=== PATIENT | male | born 1990 | race Caucasian/White ===

== ENCOUNTER 2023-08-05 06:20 | Outpatient (REF) | payer OTHER, SELFPAY ==
[2023-08-05 06:46] LABS: MANUAL DIFF FLAG NO
[2023-08-05 07:15] LABS: Basophils Absolute Auto 0.1 X10*3/uL (0.0-0.2); Basophils Percent Auto 1.3 % (0-2); Eosinophils Absolute Auto 0.3 X10*3/uL (0.0-0.4); Eosinophils Percent Auto 3.2 % (0-4); Hematocrit 50.4 % (42.0-52.0); Hemoglobin 16.9 g/dl (14.0-18.0); Imm Gran Abs Auto 0.05 X10*3/uL (0.00-0.03); Imm Gran Pct Auto 0.6 % (0.0-0.4); Lymphocytes Absolute Auto 2.6 X10*3/uL (1.2-4.9); Lymphocytes Percent Auto 31.3 % (20-40); Mean Corpuscular HGB Conc 33.5 g/dl (31.0-36.0); Mean Corpuscular Hemoglobin 28.5 pg (27.0-33.0); Mean Corpuscular Volume 84.8 fL (80.0-98.0); Mean Platelet Volume 12.1 fL (9.4-12.4); Monocytes Absolute Auto 0.8 X10*3/uL (0.1-1.2); Monocytes Percent Auto 9.7 % (2-11); Neutrophils Absolute Auto 4.4 x10*3/uL (2.0-8.3); Neutrophils Percent Auto 53.9 % (45-73); Platelet Count 170 X10*3/uL (160-400); Red Blood Count 5.94 X10*6/uL (4.60-5.80); Red Cell Distribution Width 12.6 % (11.0-16.0); White Blood Count 8.2 X10*3/uL (4.8-10.8)
[2023-08-05 07:28] LABS: Cholesterol 213 mg/dL (<200); Glucose Fasting 137 mg/dL (60-99); HDL Cholesterol 38 mg/dL (>40); LDL Cholesterol Calculated 132 mg/dL (<100); Triglycerides 217 mg/dL (<150)
== END 2023-08-05 06:21 | disposition home or self-care (01) ==
LOC: HO.LAB 06:20
PROVIDERS: PCP Physician Assistant; Visit Provider Nurse Practitioner Psychiatric/Mental Health
DX: Z79.899 Other long term (current) drug therapy (principal)
CPT/HCPCS: 36415; 80061; 82947; 85025

== ENCOUNTER 2023-10-31 13:21 | Outpatient (AMB) | payer OTHER, SELFPAY ==
--- NOTE | 2023-10-31 13:24 | MHC.PC.OV ---
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 Transferring care from unknown. Medical records have not been requested and have not received. Resolution Specialist Required: No Stores Naval: Not Required per policy Accompanied by: Self / Same As Patient Allergies No Known Allergies [No Known Allergies*] Allergy (Verified 10/31/23 13:47) Medication List - Last Reconciled 10/31/23 by Ashwin Newman PA-C aripiprazole (Abilify) 10 mg PO BEDTIME buspirone 20 mg PO BID clonidine HCl 0.1 mg PO BEDTIME quetiapine (Seroquel) 75 mg PO BEDTIME Tobacco use date assessed: 10/31/23 Dental Screening Dental Screen Date: 10/31/23 Did you have a dental visit in the last 12 months?: No Did you have a dental problem in the last 6 months where you did not have access to dental care?: No Was dental information given to patient?: No HPI 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 Previous PCP was Patient has a past medical history significant for major depressive disorder, generalized anxiety disorder, borderline high cholesterol. Patient is followed by psychiatrist whom manages his mental health medications. He does have severe anxiety and agoraphobia tendencies to which he has been working with his psychiatrist on. Concerns--> Has lump on his neck he would like evaluated. Also concerned about his fasting blood sugar which was 137 in July of 2023. Borderline high cholesterol: Most recent lipid panel showing borderline high total cholesterol. .. Vaccines: needs Tdap though declines today, declines flu vaccine as well. PFSH Surgical History No pertinent past surgical history Family History (Updated 10/31/23 @ 13:49 by Ashwin Newman PA-C) Other Mental health disorder Substance use disorder Social History (Updated 10/31/23 @ 13:50 by Ashwin Newman PA-C) Housing: House Alcohol intake: former Year quit: 2021 Patient Tobacco Use Status: Former Tobacco user (2021) Quit Date: 2021 Tobacco use type: Smokeless Tobacco e-Cigarette/Vaping Use: Currently Using Second Hand Smoke Exposure: Yes service: No Current occupational status: unemployed Cognitive needs: No Hearing needs: No Vision needs: Yes (glasses) Questionnaire PHQ-9 Over the last 2 weeks, how often have you been bothered by any of the following problems? 1. Little interest or pleasure in doing things: nearly every day 2. Feeling down, depressed, or hopeless: several days (currently on medication which helps) 3. Trouble falling or staying asleep, or sleeping too much: nearly every day 4. Feeling tired or having little energy: not at all 5. Poor appetite or overeating: not at all 6. Feeling bad about yourself - or that you are a failure or have let yourself or your family down: nearly every day 7. Trouble concentrating on things, such as reading the newspaper or watching television: several days 8. Moving or speaking so slowly that other people could have noticed. Or the opposite - being so fidgety or restless that you have been moving around a lot more than usual: not at all 9. Thoughts that you would be better off or of hurting yourself in some way: not at all Total score: 11 Depression Screening Interpretation: Positive Depression Screening Follow-up: Existing condition and In treatment Depression Screening Done: Yes 85621 - PHQ-9 Billing: Yes Source: Developed by Drs. Henri Short, Stephanie Garcia, Bhanu Garcia and colleagues, with an educational shreyas from [employer]. Thrive Questionnaire Date Thrive assessed: 10/31/23 I am a: Patient What is your living situation today?: I have a steady place to live Within the past 12 months, did the food you bought not last and you didn't have the money to get more?: Never true Within the past 12 months, did you worry whether your food would run out before you got money to buy more?: Never true Do you have trouble paying for medicines?: No Do you have trouble getting transportation to medical appointments?: No Do you have trouble paying your heating and electricity bill?: No Do you have trouble taking care of your child, family member or friend?: No Do you have trouble with day-to-day activities such as bathing, preparing meals, shopping, managing finances, etc.?: Yes (Due to depression and anxiety) Are you currently unemployed and looking for a job?: No Are you interested in more education?: No Currently or been in a relationship where the following occur: no concerns reported THRIVE Score: 0 AUDIT C Alcohol Use Questionnaire (AUDIT-C) 1. How often do you have a drink containing alcohol?: Never Total Score: 0 RICA-7 AMB Questionnaire RICA-7 Date RICA - 7 assessed: 10/31/23 Feeling nervous, anxious, or on edge: 3 = Nearly every day Not being able to stop or control worryin = Nearly every day Worrying too much about different things: 3 = Nearly every day Trouble relaxin = Nearly every day Being so restless that it is hard to sit still: 3 = Nearly every day Becoming easily annoyed or irritable: 0 = Not at all Feeling afraid as if something awful might happen: 3 = Nearly every day Total RICA-7 score (0-4 normal; 5-9 mild; 10-14 moderate; 15-21 severe): 18 Source: Developed by Drs. Henri Short, Stephanie Garcia, Bhanu Garcia and colleagues, with an educational shreyas from [employer]. RICA-7 Assessment Billing RICA-7 Assessment Tool: RICA-7 Assessment 47955 Review of Systems Const Denies body aches, Denies chills, Denies excessive sweating, Denies fatigue, Denies fever(s) and Denies headache(s) Eyes Denies blurry vision ENT Denies dysphagia, Denies vertigo, Denies dizziness, Denies headache(s), Denies hearing loss and Denies tinnitus Card Denies chest pain, Denies chest pain with activity, Denies syncope, Denies irregular heart rhythm and Denies dyspnea Resp Denies chest congestion, Denies cough, Denies hemoptysis, Denies dyspnea and Denies wheezing GI Denies abdominal pain, Denies melena, Denies hematochezia, Denies coffee ground emesis, Denies dysphagia, Denies diarrhea, Denies nausea and Denies vomiting Denies difficulty urinating, Denies dysuria, Denies urinary frequency, Denies urinary hesitancy and Denies urinary urgency Musc Denies arthralgias, Denies limited range of motion, Denies muscle cramps and Denies muscle weakness Skin/Breast Denies rash and Denies skin ulcer Neuro Denies Abnormal speech present, Denies confusion, Denies vertigo, Denies dizziness, Denies syncope, Denies headache(s), Denies memory loss and Denies seizure-like activity Psych Reports anxiety, Denies confusion, Denies depression, Denies memory loss, Reports panic attacks and Denies paranoia Endo Denies excessive sweating, Denies fatigue, Denies flushing, Denies polydipsia and Denies polyuria Aller/Immun Denies wheezing Physical exam (Primary Care) Vital Signs: Last Vital Signs Pulse 106 H 10/31/23 13:29 BP 100/70 10/31/23 13:29 Pulse Ox 96 10/31/23 13:29 Oxygen Delivery Method Room Air 10/31/23 13:29 BMI result Body Mass Index 36.2 BMI Assessment/Plan discussion: High Tobacco/Smoking Status: Tobacco use Status Tobacco use date assessed 10/31/23 10/31/23 13:27 Patient Tobacco Use Status Former Tobacco user (2021) 10/31/23 13:50 Tobacco use type Smokeless Tobacco 10/31/23 13:50 e-Cigarette/Vaping Use Currently Using 10/31/23 13:50 Are you ready to quit: No Tobacco cessation counseling provided: Yes Items discussed: Nicotine replacement Relapse Prevention: discussed the importance of a supportive environment, discussed negative mood or depression after quitting, weight gain after smoking is common and discussed dietary, exercise and/or lifestyle changes Number of minutes spent counselin CPT code: 55592 - 4-10 Minutes PHQ-9: PHQ-9 Score PHQ-9: Total score 11 10/31/23 14:06 Depression Screening Interpretation: Positive Depression Screening Follow-up: Existing condition and In treatment Thrive Assessment: Date of Thrive Assessment Date Thrive assessed 10/31/23 10/31/23 13:27 Currently or been in a relationship where the following occur: no concerns reported Const Other: Obese General: cooperative, comfortable, no acute distress, alert and awake; No confusion Orientation/consciousness: oriented to person, oriented to place, patient oriented x3 and No confusion HENMT Head: Yes normocephalic Ears: external ears normal and TM's normal bilaterally Face and sinus: No sinus tenderness Mouth: Normal oral and palatal mucosa present and tongue normal Teeth and gingiva: dentition normal and gingiva normal Throat: Yes posterior oropharynx normal, Yes tonsils normal and Yes uvula midline Eyes Conjunctivae: conjunctivae normal Sclerae: sclerae normal Pupils: Equal, round and reactive pupils present EOM: EOMs intact bilaterally Direct Ophthalmoscopy: No no photophobia Neck Neck: Yes no lymphadenopathy, No tender and Yes no JVD Thyroid: Thyroid normal Carotids: no bruits Neck images: 1. SMALL SUBCUTANEOUS PALPABLE MOBILE WILL MASS NOTED IN THE AREA OUTLINED Chest Chest palpation & inspection: no tenderness Resp Effort & Inspection: normal respiratory effort, no audible wheezes, not labored and no stridor Auscultation: no crackles, no rales, no rhonchi and no wheezes Cardio Jugular venous distension: no JVD Rate: regular rate, not bradycardic and not tachycardic Rhythm: regular rhythm Bruits: no carotid bruits Peripheral pulses: Peripheral pulses 2+ throughout GI Inspection: Yes normal to inspection, No abdominal wall ecchymosis and No visible herniation Palpation (GI): Soft to palpation, nontender, no guarding, not rigid and No hepatosplenomegaly present Auscultation: normoactive bowel sounds General: Yes no CVA tenderness Back/Spine/Pelvis Back: no CVA tenderness and No back tenderness Cervical Spine: cervical ROM normal Thoracic/Lumbar Spine: thoracic and lumbar spine normal to inspection, straight leg raise negative bilaterally, No thoraco-lumbar ROM limited and No lumbar spinal tenderness Skin Lesions: no lesions Rashes: no rashes Wounds: no wounds Neuro General: oriented to person, oriented to place, patient oriented x3, CN's II-XI intact bilaterally and No confusion Cranial nerves: Yes Equal, round and reactive pupils present and Yes Normal accommodation reflex present Cognition (Neuro): normal cognition Speech: No Abnormal speech present Gait exam (Neuro): Normal gait present Motor exam (neuro): 5/5 motor strength present throughout Extrem Right upper extremity: full ROM; no cyanosis Left upper extremity: full ROM; no cyanosis Right lower extremity: no edema Left lower extremity: no edema Psych Appearance: grossly normal Mental Status: mental status grossly normal Affect: normal affect Attitude: cooperative Thought process: Normal thought process present Assessment and Plan Assessment & Plan (1) Annual physical exam: Code(s): Z00.00 - Encounter for general adult medical examination without abnormal findings (2) Borderline high cholesterol: Code(s): E78.9 - Disorder of lipoprotein metabolism, unspecified Plan: Patient's most recent labs in July 2023 showing borderline high total cholesterol. He has been working on dietary modifications to reduce his cholesterol. (3) Obese: Code(s): E66.9 - Obesity, unspecified Qualifiers: Body mass index: BMI 36.0-36.9 Obesity classification: adult class 2 (BMI 35 - 39.9) Obesity type: due to excess calories Serious obesity comorbidity presence: without serious comorbidity Qualified Code(s): E66.09 - Other obesity due to excess calories; Z68.36 - Body mass index [BMI] 36.0-36.9, adult Plan: Patient does understand his BMI is over 30 will work on being more physically active and adapting to better eating habits to reduce his weight. (4) Subcutaneous cyst: Code(s): L72.9 - Follicular cyst of the skin and subcutaneous tissue, unspecified Plan: Has a cystic like structure over the base of his lateral neck that has been evident over the last several years.. Denies any pain or discharge from the area.. Will send for ultrasound for better evaluation. (5) Impaired fasting glucose: Code(s): R73.01 - Impaired fasting glucose Plan: Most recent fasting blood sugar 137. Will check an A1c to evaluate for diabetes. Again advised on low carbohydrate diet and physical activity. (6) MDD (major depressive disorder), recurrent episode, moderate: Code(s): F33.1 - Major depressive disorder, recurrent, moderate Plan: Patient followed by psychiatrist who manages all his mental health medications. He is currently trying to get off of Seroquel due to its side effects. (7) RICA (generalized anxiety disorder): Code(s): F41.1 - Generalized anxiety disorder Plan: Patient's RICA-7 score positive for severe anxiety which has been existing condition for him. Patient reports he does have severe anxiety, social anxiety and agoraphobia tendencies. He is currently disabled due to his severe mental illness. (8) Smokeless tobacco use: Code(s): Z72.0 - Tobacco use Plan: He has quit smoking in 2021. Does use vaporizer cigarettes and does understand he needs to quit. Offered nicotine replacement though he declines at this time. Orders: Orders US soft tiss head and/or neck 10/31/23 L72.9 - Follicular cyst of the skin and subcutaneous tissue, unspecified Lipid Panel 10/31/23 E78.9 - Disorder of lipoprotein metabolism, unspecified Comprehensive [place]. Panel Fast 10/31/23 R73.01 - Impaired fasting glucose Hemoglobin A1c 10/31/23 R73.01 - Impaired fasting glucose Coding Level of Care Code New Pt Prev Care 18-39yr([id number] Diagnoses Annual physical exam Z00.00 Borderline high cholesterol E78.9 Class 2 obesity due to excess calories without serious comorbidity with body mass index (BMI) of 36.0 to 36.9 in adult E66.09; Z68.36 Body mass index: BMI 36.0-36.9 Obesity classification: adult class 2 (BMI 35 - 39.9) Obesity type: due to excess calories Serious obesity comorbidity presence: without serious comorbidity Subcutaneous cyst L72.9 Impaired fasting glucose R73.01 MDD (major depressive disorder), recurrent episode, moderate F33.1 RICA (generalized anxiety disorder) F41.1 Smokeless tobacco use Z72.0 Additional Codes RICA-7 Assessment Billing - RICA-7 Assessment Tool: RICA-7 Assessment 60794 ([id number]) Vital Signs *Quality* - CPT code: 90806 - 4-10 Minutes ([id number])
[2023-10-31 13:29] VITALS: BP 100/70; PULSE 106; O2SAT 96; BMI 36.2
== END 2023-10-31 14:02 | disposition home or self-care (01) ==
PROVIDERS: PCP Physician Assistant; Visit Provider Physician Assistant
DX: Z00.00 Encounter for general adult medical examination without abnormal findings (principal); F33.1 Major depressive disorder, recurrent, moderate; E66.09 Other obesity due to excess calories; Z68.36 Body mass index [BMI] 36.0-36.9, adult; E78.9 Disorder of lipoprotein metabolism, unspecified; L72.9 Follicular cyst of the skin and subcutaneous tissue, unspecified; R73.01 Impaired fasting glucose; F41.1 Generalized anxiety disorder; Z72.0 Tobacco use
CPT/HCPCS: 99385

== ENCOUNTER 2023-11-22 15:54 | Outpatient (REF) | payer OTHER, SELFPAY ==
--- NOTE | ~2023-11-22 | US_ITS ---
EXAMINATION: US SOFT TISSUE HEAD/NECK CLINICAL INFORMATION: Follicular cyst of the skin and subcutaneous tissue, unspecified. Mobile cystic mass over left-sided lateral neck. Ultrasound to evaluate for lipoma versus subcutaneous cyst versus solid mass. COMPARISON: None available. TECHNIQUE: Linear transducer abad-scale and color Doppler examination with attention to the region of the left lateral neck/shoulder. FINDINGS: Corresponding with the palpable finding towards the junction of the left neck and shoulder, a 1.3 x 0.8 x 1.3 cm hypoechoic, circumscribed subdermal collection is seen. There is no associated color Doppler flow. There is no definite sinus tract noted. There is decreased through sound transmission. US/US soft tiss head and/or neck IMPRESSION: Corresponding with the palpable finding in the lateral, lower left cervical region, a 1.3 cm subdermal low echotexture collection is noted. The ultrasound appearance favors an epidermal inclusion cyst. A lipoma would be a further, less likely differential possibility. Recommend management on a clinical basis.
== END 2023-11-22 15:55 | disposition home or self-care (01) ==
LOC: HO.US 15:54
PROVIDERS: PCP Physician Assistant; Visit Provider Physician Assistant
DX: L72.9 Follicular cyst of the skin and subcutaneous tissue, unspecified (principal)
CPT/HCPCS: 76536

== ENCOUNTER 2023-12-13 13:04 | Outpatient (AMB) | payer OTHER, SELFPAY ==
--- NOTE | 2023-12-13 13:10 | A.OFFVIS_ITS ---
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 Present for 2yrs. Patient c/o: no changes in size. Denies pain, oozing, itch. 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 It is increasing in size, become more symptomatic. He would like to have excised. He has no such lesions elsewhere. Chart was reviewed and patient evaluated [facility] Surgical History No pertinent past surgical history Family History Other Mental health disorder Substance use disorder Social History Housing: House Alcohol intake: former Year quit: 2021 Patient Tobacco Use Status: Former Tobacco user (2021) Quit Date: 2021 Tobacco use type: Smokeless Tobacco e-Cigarette/Vaping Use: Currently Using Second Hand Smoke Exposure: Yes service: No Current occupational status: unemployed Cognitive needs: No Hearing needs: No Vision needs: Yes (glasses) Physical Exam Vital Signs: Last Vital Signs Pulse 107 H 12/13/23 13:16 BP 139/86 12/13/23 13:16 BMI result Body Mass Index 36.8 Neck Other: Patient has a proximally 3 x 3 cm left mid neck sebaceous cyst. Assessment & Plan Assessment & Plan (1) Epidermal inclusion cyst: Code(s): L72.0 - Epidermal cyst Category: Surgical Plan I discussed with the patient therapeutic options which are observation or excision. He is opted for the latter but it is inconvenient for him to have this done today. He would like to reschedule and have the office procedure done on the day which is convenient for him. All questions were answered. Arrangements were made for this. Coding Level of Care Code New Pt Level 4 (36851) Diagnoses Epidermal inclusion cyst L72.0
[2023-12-13 13:16] VITALS: BP 139/86; PULSE 107; BMI 36.8
== END 2023-12-13 13:29 | disposition home or self-care (01) ==
PROVIDERS: PCP Physician Assistant; Referring Provider Physician Assistant; Visit Provider Surgery
DX: L72.0 Epidermal cyst (principal)
CPT/HCPCS: 99204

== ENCOUNTER → 2023-12-13 13:04 | Outpatient (BNVA) | payer OTHER, SELFPAY | PROVIDERS: PCP Physician Assistant; Referring Provider Physician Assistant; Visit Provider Surgery | DX: L72.0 Epidermal cyst (principal) | CPT/HCPCS: 99202 ==

== ENCOUNTER 2023-12-20 14:20 | Outpatient (REF) | payer OTHER, SELFPAY | END 2023-12-20 14:21 | disposition home or self-care (01) | LOC: HO.LNP 14:20 | PROVIDERS: PCP Physician Assistant; Visit Provider Surgery | DX: L72.0 Epidermal cyst (principal) | CPT/HCPCS: 11402; 88304 ==

== ENCOUNTER 2023-12-20 14:20 | Outpatient (AMB) | payer OTHER, SELFPAY ==
--- NOTE | 2024-01-02 08:19 | MHC.OFFVIS ---
Intake Visit Reasons: Exc EIC~ Lt ant shoulder Allergies No Known Allergies [No Known Allergies*] Allergy (Verified 12/27/23 13:34) Medication List - Last Reconciled 01/02/24 by Vincent Delong MD aripiprazole (Abilify) 10 mg PO BEDTIME buspirone 20 mg PO BID clonidine HCl 0.1 mg PO BEDTIME quetiapine (Seroquel) 75 mg PO BEDTIME HPI Comments Details: PATIENT PRESENTS FOR ELECTIVE EXCISION OF HIS LEFT ANTERIOR SHOULDER SEBACEOUS CYST. PATIENT WAS SEEN FEW WEEKS AGO REGARDING THIS AND NOW IS ABLE TO ARRANGEMENTS SCHEDULED FOR EXCISION TODAY. Risks, benefits, alternatives of procedure reviewed with the patient included but not limited to bleeding, infection, recurrence, numbness, pain, scarring, seroma formation, wound dehiscence and the patient wishes to proceed. All questions answered. After appropriate positioning, patient underwent 1% lidocaine and Betadine prep and a transverse by elliptical incision was made around the cyst in question measuring approximately 2 x 2 cm. Specimen sent to pathology. Wound was irrigated, secured hemostasis, and closed using running subcuticular 3-0 Vicryl suture followed by Steri-Strips and sterile dressings. Patient tolerated procedure well. [facility] Surgical History Hx of surgical procedure (12/20/23) No pertinent past surgical history Family History Other Mental health disorder Substance use disorder Social History Housing: House Alcohol intake: former Year quit: 2021 Patient Tobacco Use Status: Former Tobacco user (2021) Quit Date: 2021 Tobacco use type: Smokeless Tobacco e-Cigarette/Vaping Use: Currently Using Second Hand Smoke Exposure: Yes service: No Current occupational status: unemployed Cognitive needs: No Hearing needs: No Vision needs: Yes (glasses) Assessment & Plan Assessment & Plan (1) Epidermal inclusion cyst: Code(s): L72.0 - Epidermal cyst Category: Surgical Plan Patient has been given local instructions including avoiding strenuous activities, may shower in 2 days, ice to the wound, Tylenol and Motrin p.r.n. and will see me as directed or p.r.n.. All questions answered. Orders: Orders Surgical 12/20/23 L72.0 - Epidermal cyst Coding Level of Care Code Est Pt Level 5 (43171) Diagnoses Epidermal inclusion cyst L72.0
== END 2023-12-20 14:54 | disposition home or self-care (01) ==
PROVIDERS: PCP Physician Assistant; Visit Provider Surgery
DX: L72.0 Epidermal cyst (principal)
CPT/HCPCS: 11402

== ENCOUNTER 2023-12-27 13:25 | Outpatient (AMB) | payer OTHER, SELFPAY ==
--- NOTE | 2023-12-27 13:33 | MHC.OFFVIS ---
Intake Visit Reasons: s/p Exc Lt ant shoulder Intake Note: Patient here s/p exc on lt ant shoulder. Reports incision healing well. Patient c/o: denies pain, oozing, itch. 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 He has no wound issues or complaints. Pathology is benign PFSH Surgical History Hx of surgical procedure (12/20/23) No pertinent past surgical history Family History Other Mental health disorder Substance use disorder Social History Housing: House Alcohol intake: former Year quit: 2021 Patient Tobacco Use Status: Former Tobacco user (2021) Quit Date: 2021 Tobacco use type: Smokeless Tobacco e-Cigarette/Vaping Use: Currently Using Second Hand Smoke Exposure: Yes service: No Current occupational status: unemployed Cognitive needs: No Hearing needs: No Vision needs: Yes (glasses) Physical Exam Neck Other: Left shoulder/neck wound is healing very well. Assessment & Plan Assessment & Plan (1) Postop check: Code(s): Z09 - Encounter for follow-up examination after completed treatment for conditions other than malignant neoplasm Category: Surgical Plan Patient has been given local instructions, and will follow-up p.r.n.. All questions answered. Coding Level of Care Code Global (38192) Diagnoses Postop check Z09
== END 2023-12-27 13:46 | disposition home or self-care (01) ==
PROVIDERS: PCP Physician Assistant; Visit Provider Surgery
DX: Z09 Encounter for follow-up examination after completed treatment for conditions other than malignant neoplasm (principal)
CPT/HCPCS: 99024

== ENCOUNTER → 2023-12-27 13:25 | Outpatient (BNVA) | payer OTHER, SELFPAY | PROVIDERS: PCP Physician Assistant; Visit Provider Surgery | DX: Z09 Encounter for follow-up examination after completed treatment for conditions other than malignant neoplasm (principal) | CPT/HCPCS: 99212 ==

== ENCOUNTER 2024-04-30 08:41 | Outpatient (REF) | payer OTHER, SELFPAY ==
[2024-04-30 09:40] LABS: Estimated Average Glucose 123 mg/dL; Hemoglobin A1c % 5.9 % (<6.0)
[2024-04-30 10:02] LABS: Alanine Aminotransferase 23 U/L (0-40); Albumin Level 4.5 g/dL (3.5-5.0); Alkaline Phosphatase 72 U/L (39-117); Anion Gap 13 (12-20); Aspartate Amino Transferase 12 U/L (5-37); Bilirubin Total 0.4 mg/dL (0.0-1.0); Blood Urea Nitrogen 14 mg/dL (9-16); Calcium 9.8 mg/dL (8.4-10.2); Carbon Dioxide 26 mmol/L (22-29); Chloride 108 mmol/L (96-108); Cholesterol 208 mg/dL (<200); Estimated Glomerular Filt Rate > 60; Glucose Fasting 126 mg/dL (60-99); HDL Cholesterol 31 mg/dL (>40); LDL Cholesterol Calculated 145 mg/dL (<100); Potassium 3.6 mmol/L (3.3-5.1); Sodium 143 mmol/L (135-145); Total Protein 7.3 g/dL (6.5-8.0); Triglycerides 164 mg/dL (<150)
== END 2024-04-30 08:42 | disposition home or self-care (01) ==
LOC: HO.LAB 08:41
PROVIDERS: PCP Physician Assistant; Visit Provider Physician Assistant
DX: R73.01 Impaired fasting glucose (principal); E78.9 Disorder of lipoprotein metabolism, unspecified
CPT/HCPCS: 36415; 80053; 80061; 83036

== ENCOUNTER 2024-05-02 14:11 | Outpatient (AMB) | payer OTHER, SELFPAY ==
--- NOTE | 2024-05-02 14:12 | MHC.PC.OV ---
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 Accompanied by: Self / Same As Patient Allergies No Known Allergies [No Known Allergies*] Allergy (Verified 05/02/24 14:19) Medication List - Last Reconciled 05/02/24 by Ashwin Newman PA-C aripiprazole (Abilify) 10 mg PO BEDTIME aripiprazole 2 mg PO DAILY buspirone 20 mg PO BID clonidine HCl 0.1 mg PO BEDTIME Tobacco use date assessed: 10/31/23 Dental Screening Dental Screen Date: 10/31/23 HPI 6mth f/u HPI Details Patient is a 33-year-old male here today for a follow-up visit Patient has a past medical history significant for major depressive disorder, generalized anxiety disorder, borderline high cholesterol. Patient is followed by psychiatrist whom manages his mental health medications. He does have severe anxiety and agoraphobia tendencies to which he has been working with his psychiatrist on. He did have a increase in his dose of Abilify and feels it has been helpful. Has lost weight since stopping Seroquel .. Impaired glucose metabolism: Most recent fasting blood sugar slightly elevated and A1c of 5.9. PLAN: Work on lifestyle and dietary modifications to reduce his blood sugars. . Borderline high cholesterol: Most recent lipid panel showing improved borderline high total cholesterol. Of note has lost weight since being taken off of Seroquel Laboratory Tests 08/05/23 04/30/24 06:44 09:01 Creatinine 0.99 Fasting Glucose 126 H Hemoglobin A1c % 5.9 Triglycerides 164 H Cholesterol 213 H 208 H LDL Cholesterol, C alc 132 H 145 H PFSH Surgical History Hx of surgical procedure (12/20/23) No pertinent past surgical history Family History Other Mental health disorder Substance use disorder Social History Housing: House Alcohol intake: former Year quit: 2021 Patient Tobacco Use Status: Former Tobacco user (2021) Tobacco use type: Smokeless Tobacco e-Cigarette/Vaping Use: Currently Using Second Hand Smoke Exposure: Yes service: No Current occupational status: unemployed Cognitive needs: No Hearing needs: No Vision needs: Yes (glasses) Questionnaire Thrive Questionnaire Date Thrive assessed: 10/31/23 RICA-7 AMB Questionnaire RICA-7 Date RICA - 7 assessed: 10/31/23 Source: Developed by Drs. Henri Short, Stephanie Garcia, Bhanu Garcia and colleagues, with an educational shreyas from [employer]. Review of Systems Const Denies headache(s) Eyes Denies loss of vision ENT Denies vertigo, Denies dizziness, Denies headache(s) and Denies sore throat Card Denies chest pain, Denies leg edema and Denies lightheadedness Resp Denies cough, Denies hemoptysis and Denies wheezing GI Denies abdominal pain, Denies melena, Denies constipation, Denies diarrhea and Denies vomiting Denies dysuria, Denies urinary frequency and Denies urinary urgency Musc Denies arthralgias, Denies joint swelling, Denies numbness and Denies tingling Neuro Denies Abnormal speech present, Denies behavioral changes, Denies vertigo, Denies dizziness, Denies headache(s), Denies loss of vision, Denies memory loss, Denies numbness and Denies tingling Psych Denies anxiety, Denies behavioral changes, Denies depression, Denies memory loss and Denies panic attacks Tanner/Lymph Denies easy bleeding and Denies easy bruising Aller/Immun Denies wheezing Physical exam (Primary Care) Vital Signs: Last Vital Signs Pulse 104 H 05/02/24 14:16 BP 120/80 05/02/24 14:16 Pulse Ox 97 05/02/24 14:16 Oxygen Delivery Method Room Air 05/02/24 14:16 BMI result Body Mass Index 35.2 Tobacco/Smoking Status: Tobacco use Status Tobacco use date assessed 10/31/23 05/02/24 14:13 Patient Tobacco Use Status Former Tobacco user (2021) 05/02/24 14:13 Tobacco use type Smokeless Tobacco 05/02/24 14:13 e-Cigarette/Vaping Use Currently Using 05/02/24 14:13 Thrive Assessment: Date of Thrive Assessment Date Thrive assessed 10/31/23 05/02/24 14:13 Const General: healthy appearing, no acute distress, alert and awake Nutritional Appearance: well nourished Orientation/consciousness: oriented to person, oriented to place and oriented to time HENMT Ears: TM's normal bilaterally General nose exam: Normal nasal mucous membranes and turbinates present Eyes Conjunctivae: conjunctivae normal Sclerae: sclerae normal Pupils: Equal, round and reactive pupils present Neck Neck: Yes no lymphadenopathy and Yes no JVD Thyroid: Thyroid normal Carotids: no bruits Resp Effort & Inspection: normal respiratory effort and not tachypneic Auscultation: no crackles, no rales, no rhonchi and no wheezes Cardio Rate: regular rate Rhythm: regular rhythm Heart sounds: no murmurs and normal S1 and S2 GI Palpation (GI): Soft to palpation, nontender, no hepatomegaly and no splenomegaly Auscultation: normal bowel sounds Skin General skin exam: no rashes or lesions noted and dry skin Neuro General: oriented to person, oriented to place and oriented to time Cranial nerves: Yes Equal, round and reactive pupils present Speech: No Abnormal speech present Gait exam (Neuro): Normal gait present Motor exam (neuro): no tremor noted Extrem Right upper extremity: full ROM Left upper extremity: full ROM Right lower extremity: full ROM; no edema Left lower extremity: full ROM; no edema Psych Mental Status: mental status grossly normal Speech and movement: Normal speech and movement present Affect: normal affect Attitude: cooperative Thought process: Normal thought process present Assessment and Plan Assessment & Plan (1) Borderline high cholesterol: Code(s): E78.9 - Disorder of lipoprotein metabolism, unspecified Plan: Recent lipid panel showing improved total cholesterol. Has lost weight since being taken off Seroquel. Will continue to manage his cholesterol with diet and lifestyle modifications. Goal LDL to remain below 160 (2) Impaired fasting glucose: Code(s): R73.01 - Impaired fasting glucose Plan: Most recent fasting blood sugar 137. Most recent A1c of 5.9.. Again advised on low carbohydrate diet and physical activity. (3) MDD (major depressive disorder), recurrent episode, moderate: Code(s): F33.1 - Major depressive disorder, recurrent, moderate Plan: Patient followed by psychiatrist who manages all his mental health medications. He has completely weaned off of Seroquel. His Abilify dose was increased to 12 mg daily which he feels has been helpful. (4) RICA (generalized anxiety disorder): Code(s): F41.1 - Generalized anxiety disorder Plan: Patient continues to follow a psychiatrist who manages his mental health medication. He does report still suffering with anxiety though has been manageable with his current dose of clonidine, BuSpar and Abilify. Orders: Orders Comprehensive [place]. Panel Fast 05/02/24 R73.01 - Impaired fasting glucose Complete Blood Count no Diff 05/02/24 E78.9 - Disorder of lipoprotein metabolism, unspecified Hemoglobin A1c 05/02/24 R73.01 - Impaired fasting glucose Lipid Panel 05/02/24 E78.9 - Disorder of lipoprotein metabolism, unspecified Patient Instructions: Goal: LDL to remain below 160 Barriers: Adherence to physical activity and healthy eating habits Coding Level of Care Code Est Pt Level 4 (61187) Diagnoses Borderline high cholesterol E78.9 Impaired fasting glucose R73.01 MDD (major depressive disorder), recurrent episode, moderate F33.1 RICA (generalized anxiety disorder) F41.1
[2024-05-02 14:16] VITALS: BP 120/80; PULSE 104; O2SAT 97; BMI 35.2
== END 2024-05-02 14:31 | disposition home or self-care (01) ==
PROVIDERS: PCP Physician Assistant; Visit Provider Physician Assistant
DX: E78.9 Disorder of lipoprotein metabolism, unspecified (principal); R73.01 Impaired fasting glucose; F33.1 Major depressive disorder, recurrent, moderate; F41.1 Generalized anxiety disorder
CPT/HCPCS: 99214

== ENCOUNTER 2024-10-29 06:06 | Outpatient (REF) | payer OTHER, SELFPAY ==
--- OUTSIDE RECORDS SUMMARY | 2024-10-29 06:09 | XMS_ITS | Clinical Summary ---
Author Organization [facility] Address [address] [place] [phone] Phone Care Team Providers Care Bladder Changer Name Role Phone Unavailable Primary Care Provider Unavailabl e Immunizations Immunization Administration Dates Next Due DTP 12/29/1995, 2,05/30/1991,1990,01/10/1991 Hep B, ped/adol 07/10/1997,04/04/1996,12/29/1995 Hib (PRP-T) 04/21/1992, 1,03/28/1991,1990 MMR 04/15/1995,04/21/1992 OPV 12/29/1995, 2,03/28/1991,1990 Td (adult) (MBL), 2 Lf tetan us toxoid, PF, adsorbed 09/17/2002 Family History Relation Name Status Comments Father Alive Father: Alive a nd well Mother Alive Mother: Alive a nd well Social History Tobacco Use Types Packs/Day Years Used Date Smoking Tobacco: Never Assessed Sex and Gender Information Value Date Recorded Sex Assigned at Not on file Legal Sex Male 4:29 PM EDT Gender Identity Not on file Sexual Orientation Not on file Last Filed Vital Signs Vital Sign Reading Time Taken Comments Blood Pressure - - Pulse - - Temperature - - Respiratory Rate - - Oxygen Saturation - - Inhaled Oxygen Concentration - - Weight 65.3 kg (144 lb) 11/19/2009 12:00 AM EDT Height - - Body Mass Index - - Plan of Treatment Health Maintenance Due Date Last Done Comments DTaP,Tdap,and Td Vaccines (6 - Tdap) 09/18/2002 09/17/2002, 12/29/1995, 06/09/1992, Additional history exists Varicella Vaccines (1 of 2 - 13+ 2-dose series) 11/11/2003 Consider Men B Vaccine (1 of 2 - Bexsero 2-dose series) 2006 Influenza Vaccines (#1) 2024 COVID-19 Vaccine ( season) 2024 HIB Vaccines Completed 04/21/1992, 04/1991, 03/28/1991, Additional history exists MMR Vaccines Completed 04/15/1995, 04/21/1992 IPV Vaccines Completed 12/29/1995, 05/22, 03/28/1991, Additional history exists Hepatitis B Vaccines Completed 07/10/1997, 04/04/1996, 12/29/1995 HPV Vaccines Aged Out No longer eligi ble based on patient's age to complete this topic Hepatitis A Vaccines Aged Out No long er eligible based on patient's age to complete this topic Men B Vaccine Aged Out No longer elig ible based on patient's age to complete this topic Meningococcal Vaccine Aged Out No fady bryan eligible based on patient's age to complete this topic Pneumococcal Vaccine Aged Out No long er eligible based on patient's age to complete this topic
--- OUTSIDE RECORDS SUMMARY | 2024-10-29 06:09 | XMS_ITS | Encounter Summary ---
Author Organization [facility] Address [address] [place] [phone] Phone Care Team Providers Care Size Stamper Name Role Phone Roney Carmona MD Primary Care Provider [phone] Encounter Details Date Type Department Care Team (Late st Contact Info) Description 04/07/2017 Conversion Encounter [facility] [address] [place] [address] Social History Tobacco Use Types Packs/Day Years Used Date Smoking Tobacco: Never Assessed Sex and Gender Information Value Date Recorded Sex Assigned at Not on file Legal Sex Male 4:29 PM EDT Gender Identity Not on file Sexual Orientation Not on file documented as of this encounter Plan of Treatment Not on file documented as of this encounter Visit Diagnoses Not on filedocumented in this encounter Care Teams Size Stamper Relationship Specialty Start Date End Date Roney Carmona MD [address] [place] [address] PCP - General 04/01/17 02/10/23 documented as of this encounter
[2024-10-29 07:38] LABS: Hematocrit 49.8 % (42.0-52.0); Hemoglobin 17.1 g/dl (14.0-18.0); Mean Corpuscular HGB Conc 34.3 g/dl (31.0-36.0); Mean Corpuscular Hemoglobin 28.4 pg (27.0-33.0); Mean Corpuscular Volume 82.7 fL (80.0-98.0); Mean Platelet Volume 11.9 fL (9.4-12.4); Platelet Count 180 X10*3/uL (160-400); Red Blood Count 6.02 X10*6/uL (4.60-5.80); White Blood Count 7.9 X10*3/uL (4.8-10.8)
[2024-10-29 07:52] LABS: Estimated Average Glucose 111 mg/dL; Hemoglobin A1C 158.6732 umol/L; Hemoglobin A1c % 5.5 % (<6.0)
[2024-10-29 08:09] LABS: Alanine Aminotransferase 34 U/L (0-40); Albumin Level 4.8 g/dL (3.5-5.0); Alkaline Phosphatase 76 U/L (39-117); Anion Gap 13 (12-20); Aspartate Amino Transferase 19 U/L (5-37); Bilirubin Total 0.6 mg/dL (0.0-1.0); Blood Urea Nitrogen 16 mg/dL (9-16); Calcium 9.8 mg/dL (8.4-10.2); Carbon Dioxide 25 mmol/L (22-29); Chloride 106 mmol/L (96-108); Cholesterol 241 mg/dL (<200); Estimated Glomerular Filt Rate > 60; Glucose Fasting 104 mg/dL (60-99); HDL Cholesterol 37 mg/dL (>40); LDL Cholesterol Calculated 170 mg/dL (<100); Potassium 4.1 mmol/L (3.3-5.1); Sodium 140 mmol/L (135-145); Total Protein 8.3 g/dL (6.5-8.0); Triglycerides 171 mg/dL (<150)
== END 2024-10-29 06:07 | disposition home or self-care (01) ==
LOC: HO.LAB 06:06
PROVIDERS: PCP Physician Assistant; Visit Provider Physician Assistant
DX: E78.9 Disorder of lipoprotein metabolism, unspecified (principal); R73.01 Impaired fasting glucose
CPT/HCPCS: 36415; 80053; 80061; 83036; 85027

== ENCOUNTER 2024-11-01 13:33 | Outpatient (AMB) | payer OTHER, SELFPAY ==
--- NOTE | 2024-11-01 13:36 | A.OFFPC_ITS ---
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: No Was dental information given to patient?: Patient has dentist HPI Annual Exam HPI Details Patient is a 33-year-old male here today for a follow-up visit Patient has a past medical history significant for major depressive disorder, generalized anxiety disorder, borderline high cholesterol. Patient is followed by psychiatrist whom manages his mental health medications. He does have severe anxiety and agoraphobia tendencies to which he has been working with his psychiatrist on. He did have a increase in his dose of Abilify and feels it has been helpful. Has lost weight since stopping Seroquel .. Impaired glucose metabolism: Fasting glucose from 126 mg/dL to 104 mg/dL and a drop in hemoglobin A1c from 5.9% to 5.5%, seemingly due to dietary modifications such as eliminating ice cream and cookies. PLAN: Continue to Work on lifestyle and dietary modifications to reduce his blood sugars. . Borderline high cholesterol: Most recent lipid panel showing elevated total cholesterol and LDL. Unclear his dyslipidemia is related to his Abilify medication vaccine: We did discuss needing a tetanus vaccine though he declines today. Laboratory Tests 08/05/23 04/30/24 10/29/24 06:44 09:01 06:18 RBC 5.94 H 6.02 H Fasting Glucose 126 H 104 H Hemoglobin A1c % 5.9 5.5 Triglycerides 164 H 171 H Cholesterol 241 H LDL Cholesterol, C alc 170 H PFSH Surgical History Hx of surgical procedure (12/20/23) No pertinent past surgical history Family History Family/Other Mental health disorder Substance use disorder Social History (Updated 11/01/24 @ 13:49 by Ashwin Newman PA-C) Housing: House Alcohol intake: former Year quit: 2021 Patient Tobacco Use Status: Former Tobacco user (2021) Tobacco use type: Smokeless Tobacco e-Cigarette/Vaping Use: Currently Using Second Hand Smoke Exposure: Yes service: No Current occupational status: disabled Cognitive needs: No Hearing needs: No Vision needs: Yes (glasses) Questionnaire PHQ-9 Over the last 2 weeks, how often have you been bothered by any of the following problems? 1. Little interest or pleasure in doing things: nearly every day 2. Feeling down, depressed, or hopeless: nearly every day 3. Trouble falling or staying asleep, or sleeping too much: several days 4. Feeling tired or having little energy: several days 5. Poor appetite or overeating: not at all 6. Feeling bad about yourself - or that you are a failure or have let yourself or your family down: more than half the days 7. Trouble concentrating on things, such as reading the newspaper or watching television: nearly every day 8. Moving or speaking so slowly that other people could have noticed. Or the opposite - being so fidgety or restless that you have been moving around a lot more than usual: several days 9. Thoughts that you would be better off or of hurting yourself in some way: not at all Total score: 14 Depression Screening Interpretation: Positive Depression Screening Done: Yes Source: Developed by Drs. Henri Short, Stephanie Garcia, Bhanu Garcia and colleagues, with an educational shreyas from [employer]. Thrive Questionnaire Date Thrive assessed: 11/01/24 I am a: Patient What is your living situation today?: I have a steady place to live Within the past 12 months, did the food you bought not last and you didn't have the money to get more?: Never true Within the past 12 months, did you worry whether your food would run out before you got money to buy more?: Never true Do you have trouble paying for medicines?: No Do you have trouble getting transportation to medical appointments?: No Do you have trouble paying your heating and electricity bill?: No Do you have trouble taking care of your child, family member or friend?: No Do you have trouble with day-to-day activities such as bathing, preparing meals, shopping, managing finances, etc.?: I choose not to answer this question Are you currently unemployed and looking for a job?: I choose not to answer this question Are you interested in more education?: Yes Please select the resources that you would like help with: None Currently or been in a relationship where the following occur: No concerns reported THRIVE Score: 0 AUDIT C Alcohol Use Questionnaire (AUDIT-C) 1. How often do you have a drink containing alcohol?: Never Total Score: 0 RICA-7 AMB Questionnaire RICA-7 Date RICA - 7 assessed: 11/01/24 Feeling nervous, anxious, or on edge: 3 = Nearly every day Not being able to stop or control worryin = Nearly every day Worrying too much about different things: 3 = Nearly every day Trouble relaxin = Nearly every day Being so restless that it is hard to sit still: 0 = Not at all Becoming easily annoyed or irritable: 1 = Several days Feeling afraid as if something awful might happen: 3 = Nearly every day Total RICA-7 score (0-4 normal; 5-9 mild; 10-14 moderate; 15-21 severe): 16 Source: Developed by Drs. Henri Short, Stephanie Garcia, Bhanu Garcia and colleagues, with an educational shreyas from [employer]. Review of Systems Const Denies headache(s) Eyes Denies loss of vision ENT Denies vertigo, Denies dizziness, Denies headache(s) and Denies sore throat Card Denies chest pain, Denies leg edema and Denies lightheadedness Resp Denies cough, Denies hemoptysis and Denies wheezing GI Denies abdominal pain, Denies melena, Denies constipation, Denies diarrhea and Denies vomiting Denies dysuria, Denies urinary frequency and Denies urinary urgency Musc Denies arthralgias, Denies joint swelling, Denies numbness and Denies tingling Neuro Denies Abnormal speech present, Denies behavioral changes, Denies vertigo, Denies dizziness, Denies headache(s), Denies loss of vision, Denies memory loss, Denies numbness and Denies tingling Psych Denies anxiety, Denies behavioral changes, Denies depression, Denies memory loss and Denies panic attacks Tanner/Lymph Denies easy bleeding and Denies easy bruising Aller/Immun Denies wheezing Physical exam (Primary Care) Vital Signs: Last Vital Signs Pulse 106 H 11/01/24 13:40 BP 136/80 11/01/24 13:40 Pulse Ox 96 11/01/24 13:40 Oxygen Delivery Method Room Air 11/01/24 13:40 BMI result Body Mass Index 33.6 BMI Assessment/Plan discussion: High BMI High, discussed plan: lifestyle, weight reduction, dietary and physical activity Tobacco/Smoking Status: Tobacco use Status Tobacco use date assessed 11/01/24 11/01/24 13:44 Patient Tobacco Use Status Former Tobacco user (2021) 11/01/24 13:38 Tobacco use type Smokeless Tobacco 11/01/24 13:38 e-Cigarette/Vaping Use Currently Using 11/01/24 13:38 Are you ready to quit: No Tobacco cessation counseling provided: Yes Items discussed: Nicotine replacement Relapse Prevention: discussed the importance of a supportive environment, discussed negative mood or depression after quitting, weight gain after smoking is common and discussed dietary, exercise and/or lifestyle changes Number of minutes spent counselin CPT code: 18344 - 4-10 Minutes PHQ-9: PHQ-9 Score PHQ-9: Total score 14 11/01/24 13:38 Depression Screening Interpretation: Positive Thrive Assessment: Date of Thrive Assessment Date Thrive assessed 11/01/24 11/01/24 13:38 Currently or been in a relationship where the following occur: No concerns reported Const General: healthy appearing, no acute distress, alert and awake Nutritional Appearance: well nourished Orientation/consciousness: oriented to person, oriented to place and oriented to time HENMT Ears: TM's normal bilaterally General nose exam: Normal nasal mucous membranes and turbinates present Eyes Conjunctivae: conjunctivae normal Sclerae: sclerae normal Pupils: Equal, round and reactive pupils present Neck Neck: Yes no lymphadenopathy and Yes no JVD Thyroid: Thyroid normal Carotids: no bruits Resp Effort & Inspection: normal respiratory effort and not tachypneic Auscultation: no crackles, no rales, no rhonchi and no wheezes Cardio Rate: regular rate Rhythm: regular rhythm Heart sounds: no murmurs and normal S1 and S2 GI Palpation (GI): Soft to palpation, nontender, no hepatomegaly and no splenomegaly Auscultation: normal bowel sounds Skin General skin exam: no rashes or lesions noted and dry skin Neuro General: oriented to person, oriented to place and oriented to time Cranial nerves: Yes Equal, round and reactive pupils present Speech: No Abnormal speech present Gait exam (Neuro): Normal gait present Motor exam (neuro): no tremor noted Extrem Right upper extremity: full ROM Left upper extremity: full ROM Right lower extremity: full ROM; no edema Left lower extremity: full ROM; no edema Psych Mental Status: mental status grossly normal Speech and movement: Normal speech and movement present Affect: normal affect Attitude: cooperative Thought process: Normal thought process present Coding Level of Care Code Est Pt Level 4 (48301) Diagnoses Mixed hyperlipidemia E78.2 Hyperlipidemia type: mixed hyperlipidemia MDD (major depressive disorder), recurrent episode, moderate F33.1 Impaired fasting glucose R73.01 Class 1 obesity E66.811 Smokeless tobacco use Z72.0 Additional Codes Vital Signs *Quality* - CPT code: 47618 - 4-10 Minutes ([id number]) Assessment & Plan Assessment & Plan (1) HLD (hyperlipidemia): Code(s): E78.5 - Hyperlipidemia, unspecified Category: Medical Qualifiers: Hyperlipidemia type: mixed hyperlipidemia Qualified Code(s): E78.2 - Mixed hyperlipidemia Plan: Despite improved blood sugar control, the patient has elevated cholesterol levels, possibly due to the use of Abilify. A non-pharmacologic approach is preferred due to the patient's age and potential medication side effects. Discussed dyslipidemia as a placebo effect of Abilify, emphasizing dietary changes towards low-fat and low-processed meat options, with increased consumption of fruits, vegetables, and whole grains to mitigate cardiovascular risks. Reassessment of cholesterol levels is planned for six months, considering possible initiation of pharmacologic intervention if hyperlipidemia persists. The risks and benefits of pharmacotherapy versus lifestyle modifications were discussed with the patient, who has agreed to dietary changes and will consider further measures as needed after reevaluation. Continued collaboration with the prescribing psychiatrist for mental health medications, specifically Abilify, is recommended. (2) MDD (major depressive disorder), recurrent episode, moderate: Code(s): F33.1 - Major depressive disorder, recurrent, moderate Category: Medical Plan: Continues to follow psychiatrist whom is managing his mental health medications. He is currently on disability due to his mental health. He for the most part feels his mental health is fairly stable though has ups and Downs with his mood. (3) Impaired fasting glucose: Code(s): R73.01 - Impaired fasting glucose Category: Medical Plan: Patient's most recent fasting blood sugar much improved and A1c now at 5.5. He will continue with low-carbohydrate diet and try to be more physically active to reduce his weight. (4) Class 1 obesity: Code(s): E66.811 - Obesity, class 1 Category: Medical Plan: Patient does understand his BMI is over 30 will work on being more physically active and adapting to better eating habits to reduce his weight. Has been able to lose weight since stopping Seroquel. (5) Smokeless tobacco use: Code(s): Z72.0 - Tobacco use Category: Social Hx Plan: He does continue to use smokeless tobacco and does understand he needs to comple tely quit. Not interested in nicotine Orders: Orders Comprehensive [place]. Panel Fast Today R73.01 - Impaired fasting glucose Lipid Panel Today E78.2 - Mixed hyperlipidemia Hemoglobin A1c Today R73.01 - Impaired fasting glucose Patient Instructions: Goal: LDL to be below 160 Barriers: Need for control of his mental health , Adherence to physical activity and healthy eating habits
[2024-11-01 13:40] VITALS: BP 136/80; PULSE 106; O2SAT 96; BMI 33.6
--- OUTSIDE RECORDS SUMMARY | 2024-11-01 17:06 | XMS_ITS | Encounter Summary ---
Author Organization [facility] Address [address] [place] [phone] Phone Care Team Providers Care Manager Clinical Informatics Name Role Phone Roney Carmona MD Primary Care Provider [phone] Encounter Details Date Type Department Care Team (Late st Contact Info) Description 04/07/2017 Conversion Encounter [facility] [place] [address] [place] [address] Social History Tobacco Use Types Packs/Day Years [...] on filedocumented in this encounter Care Teams Manager Clinical Informatics Relationship Specialty Start Date End Date Roney Carmona MD [address] [place] [address] PCP - General 04/01/17 02/10/23 documented as of this encounter
--- OUTSIDE RECORDS SUMMARY | 2024-11-01 17:06 | XMS_ITS | Clinical Summary ---
Author Organization [facility] Address [address] [place] [address] Phone Care Team Providers Care Supervisor Hand Workers Name Role Phone Unavailable Primary Care Provider [...]
== END 2024-11-01 13:57 | disposition home or self-care (01) ==
LOC: HO.HMCH 13:33
PROVIDERS: PCP Physician Assistant; Visit Provider Physician Assistant
DX: E78.2 Mixed hyperlipidemia (principal); F33.1 Major depressive disorder, recurrent, moderate; R73.01 Impaired fasting glucose; E66.811 Obesity, class 1; Z72.0 Tobacco use

== ENCOUNTER → 2024-11-01 13:33 | Outpatient (BNVA) | payer OTHER, SELFPAY | PROVIDERS: PCP Physician Assistant; Visit Provider Physician Assistant | DX: E78.2 Mixed hyperlipidemia (principal); F33.1 Major depressive disorder, recurrent, moderate; R73.01 Impaired fasting glucose; E66.811 Obesity, class 1; Z72.0 Tobacco use | CPT/HCPCS: 99212 ==

== ENCOUNTER 2025-05-14 13:51 | Outpatient (AMB) | payer OTHER, SELFPAY ==
[2025-05-14 13:55] VITALS: BP 128/76; PULSE 83; TEMP 36.4; O2SAT 99; BMI 33.6
--- NOTE | 2025-05-14 13:55 | A.OFFPC_ITS ---
Vital Signs 05/14/25 13:55 Height 5 ft 8 in Weight 221 lb BMI 33.6 BP 128/76 Blood Pressure Location Lt brachial Position Sitting Pulse 83 Pulse Source Pulse Oximeter Temp 97.5 F Temp Source Temporal Artery Scan Pulse Oximetry (%) 99 Oxygen Delivery Method Room Air Intake Visit Reasons: f/u HLD/ [employer] Required: No Accompanied by: Self / Same As Patient Allergies No Known Allergies (No Known Allergies*) Allergy (Verified 05/14/25 14:08) Medication List - Last Reconciled 05/14/25 by Ashwin Newman PA-C aripiprazole 20 mg PO DAILY buspirone 20 mg PO BID clonidine HCl 0.1 mg PO BEDTIME Tobacco use date assessed: 05/14/25 Dental Screening Dental Screen Date: 05/14/25 Did you have a dental visit in the last 12 months?: Yes Did you have a dental problem in the last 6 months where you did not have access to dental care?: No HPI f/u HLD/ IGM HPI Details Patient is a 34-year-old male here today for a follow-up visit Patient has a past medical history significant for major depressive disorder, generalized anxiety disorder, borderline high cholesterol. Patient is followed by psychiatrist whom manages his mental health medications. He does have severe anxiety and agoraphobia tendencies to which he has been working with his psychiatrist on. He did have a increase in his dose of Abilify and feels it has been helpful. NO HAS BEEN SOBER FROM ALCOHOL OVER THE LAST 3 YEARS (SOBRIETY DATE OF 2021) .. Impaired glucose metabolism: Fasting glucose from 126 mg/dL to 104 mg/dL and a drop in hemoglobin A1c from 5.9% to 5.5%, seemingly due to dietary modifications such as eliminating ice cream and cookies. PLAN: Continue to Work on lifestyle and dietary modifications to reduce his blood sugars. . Borderline high cholesterol: Most recent lipid panel showing elevated total cholesterol and LDL. Unclear his dyslipidemia is related to his Abilify medication Laboratory Tests 04/30/24 10/29/24 09:01 06:18 Hgb 17.1 Hemoglobin A1c % 5.9 5.5 Cholesterol 208 H 241 H PFSH Surgical History Hx of surgical procedure (12/20/23) No pertinent past surgical history Family History Family/Other Mental health disorder Substance use disorder Mother No problems noted. Father No problems noted. Social History Housing: House Alcohol intake: former Year quit: 2021 Patient Tobacco Use Status: Former Tobacco user (2021) Tobacco use type: Smokeless Tobacco e-Cigarette/Vaping Use: Currently Using Second Hand Smoke Exposure: Yes service: No Current occupational status: disabled Cognitive needs: No Hearing needs: No Vision needs: Yes (glasses) Questionnaire PHQ-9 Over the last 2 weeks, how often have you been bothered by any of the following problems? 1. Little interest or pleasure in doing things: not at all 2. Feeling down, depressed, or hopeless: nearly every day 3. Trouble falling or staying asleep, or sleeping too much: nearly every day (trouble staying asleep) 4. Feeling tired or having little energy: not at all 5. Poor appetite or overeating: not at all 6. Feeling bad about yourself - or that you are a failure or have let yourself or your family down: not at all 7. Trouble concentrating on things, such as reading the newspaper or watching television: not at all 8. Moving or speaking so slowly that other people could have noticed. Or the opposite - being so fidgety or restless that you have been moving around a lot more than usual: not at all 9. Thoughts that you would be better off or of hurting yourself in some way: not at all Total score: 6 Depression Screening Interpretation: Positive Depression Screening Follow-up: Existing condition and In treatment Depression Screening Done: Yes 58202 - PHQ-9 Billing: Yes Source: Developed by Drs. Henri Short, Stephanie Garcia, Bhanu Garcia and colleagues, with an educational shreyas from [employer]. Thrive Questionnaire Date Thrive assessed: 05/14/25 I am a: Patient What is your living situation today?: I have a steady place to live Within the past 12 months, did the food you bought not last and you didn't have the money to get more?: Never true Within the past 12 months, did you worry whether your food would run out before you got money to buy more?: Never true Do you have trouble paying for medicines?: No Do you have trouble getting transportation to medical appointments?: No Do you have trouble paying your heating and electricity bill?: No Do you have trouble taking care of your child, family member or friend?: No Do you have trouble with day-to-day activities such as bathing, preparing meals, shopping, managing finances, etc.?: I choose not to answer this question Are you currently unemployed and looking for a job?: I choose not to answer this question Are you interested in more education?: Yes Please select the resources that you would like help with: None Currently or been in a relationship where the following occur: No concerns reported THRIVE Score: 0 AUDIT C Alcohol Use Questionnaire (AUDIT-C) 1. How often do you have a drink containing alcohol?: Never 3. How often do you have six or more drinks on one occasion?: Never Total Score: 0 RICA-7 AMB Questionnaire RICA-7 Date RICA - 7 assessed: 05/14/25 Feeling nervous, anxious, or on edge: 3 = Nearly every day Not being able to stop or control worryin = Not at all Worrying too much about different things: 0 = Not at all Trouble relaxin = Not at all Being so restless that it is hard to sit still: 0 = Not at all Becoming easily annoyed or irritable: 0 = Not at all Feeling afraid as if something awful might happen: 0 = Not at all Total RICA-7 score (0-4 normal; 5-9 mild; 10-14 moderate; 15-21 severe): 3 Source: Developed by Drs. Henri Short, Stephanie Garcia, Bhanu Garcia and colleagues, with an educational shreyas from [employer]. RICA-7 Assessment Billing RICA-7 Assessment Tool: RICA-7 Assessment 22322 Review of Systems Const Denies headache(s) Eyes Denies loss of vision ENT Denies vertigo, Denies dizziness, Denies headache(s) and Denies sore throat Card Denies chest pain, Denies leg edema and Denies lightheadedness Resp Denies cough, Denies hemoptysis and Denies wheezing GI Denies abdominal pain, Denies melena, Denies constipation, Denies diarrhea and Denies vomiting Denies dysuria, Denies urinary frequency and Denies urinary urgency Musc Denies arthralgias, Denies joint swelling, Denies numbness and Denies tingling Neuro Denies Abnormal speech present, Denies behavioral changes, Denies vertigo, Denies dizziness, Denies headache(s), Denies loss of vision, Denies memory loss, Denies numbness and Denies tingling Psych Denies anxiety, Denies behavioral changes, Denies depression, Denies memory loss and Denies panic attacks Tanner/Lymph Denies easy bleeding and Denies easy bruising Aller/Immun Denies wheezing Physical exam (Primary Care) Vital Signs: Last Vital Signs Temp 97.5 F 05/14/25 13:55 Pulse 83 05/14/25 13:55 BP 128/76 05/14/25 13:55 Pulse Ox 99 05/14/25 13:55 Oxygen Delivery Method Room Air 05/14/25 13:55 BMI result Body Mass Index 33.6 Tobacco/Smoking Status: Tobacco use Status Tobacco use date assessed 05/14/25 05/14/25 13:56 Patient Tobacco Use Status Former Tobacco user (2021) 05/14/25 13:56 Tobacco use type Smokeless Tobacco 05/14/25 13:56 e-Cigarette/Vaping Use Currently Using 05/14/25 13:56 PHQ-9: PHQ-9 Score PHQ-9: Total score 6 05/14/25 14:02 Depression Screening Interpretation: Positive Depression Screening Follow-up: Existing condition and In treatment Thrive Assessment: Date of Thrive Assessment Date Thrive assessed 05/14/25 05/14/25 13:56 Currently or been in a relationship where the following occur: No concerns reported Const General: healthy appearing, no acute distress, alert and awake Nutritional Appearance: well nourished Orientation/consciousness: oriented to person, oriented to place and oriented to time HENMT Ears: TM's normal bilaterally General nose exam: Normal nasal mucous membranes and turbinates present Eyes Conjunctivae: conjunctivae normal Sclerae: sclerae normal Pupils: Equal, round and reactive pupils present Neck Neck: Yes no lymphadenopathy and Yes no JVD Thyroid: Thyroid normal Carotids: no bruits Resp Effort & Inspection: normal respiratory effort and not tachypneic Auscultation: no crackles, no rales, no rhonchi and no wheezes Cardio Rate: regular rate Rhythm: regular rhythm Heart sounds: no murmurs and normal S1 and S2 GI Palpation (GI): Soft to palpation, nontender, no hepatomegaly and no splenomegaly Auscultation: normal bowel sounds Skin General skin exam: no rashes or lesions noted and dry skin Neuro General: oriented to person, oriented to place and oriented to time Cranial nerves: Yes Equal, round and reactive pupils present Speech: No Abnormal speech present Gait exam (Neuro): Normal gait present Motor exam (neuro): no tremor noted Extrem Right upper extremity: full ROM Left upper extremity: full ROM Right lower extremity: full ROM; no edema Left lower extremity: full ROM; no edema Psych Mental Status: mental status grossly normal Speech and movement: Normal speech and movement present Affect: normal affect Attitude: cooperative Thought process: Normal thought process present Coding Level of Care Code Est Pt Level 4 (43336) Diagnoses Mixed hyperlipidemia E78.2 Hyperlipidemia type: mixed hyperlipidemia MDD (major depressive disorder), recurrent episode, moderate F33.1 Impaired fasting glucose R73.01 Class 1 obesity E66.811 Additional Codes PHQ-9 - 57669 - PHQ-9 Billing: Yes ([id number]) RICA-7 Assessment Billing - RICA-7 Assessment Tool: RICA-7 Assessment 95464 ([id number]) Assessment & Plan Assessment & Plan (1) HLD (hyperlipidemia): Code(s): E78.5 - Hyperlipidemia, unspecified Category: Medical Qualifiers: Hyperlipidemia type: mixed hyperlipidemia Qualified Code(s): E78.2 - Mixed hyperlipidemia Plan: Despite improved blood sugar control, the patient has elevated cholesterol levels, possibly due to the use of Abilify. A non-pharmacologic approach is preferred due to the patient's age and potential medication side effects. Discussed dyslipidemia as a placebo effect of Abilify, emphasizing dietary changes towards low-fat and low-processed meat options, with increased consumption of fruits, vegetables, and whole grains to mitigate cardiovascular risks. Reassessment of cholesterol levels is planned for six months, considering possible initiation of pharmacologic intervention if hyperlipidemia persists. (2) MDD (major depressive disorder), recurrent episode, moderate: Code(s): F33.1 - Major depressive disorder, recurrent, moderate Category: Medical Plan: Patient's PHQ-9 score positive for depression which has been existing condition for him. Continues to follow psychiatrist whom is managing his mental health medicat ions. He is currently on disability due to his mental health. He for the most part feels his mental health is fairly stable though has ups and Downs with his mood. (3) Impaired fasting glucose: Code(s): R73.01 - Impaired fasting glucose Category: Medical Plan: Patient's most recent fasting blood sugar much improved and A1c now at 5.5. He will continue with low-carbohydrate diet and try to be more physically active to reduce his weight. (4) Class 1 obesity: Code(s): E66.811 - Obesity, class 1 Category: Medical Plan: Patient does understand his BMI is over 30 will work on being more physically active and adapting to better eating habits to reduce his weight.
--- OUTSIDE RECORDS SUMMARY | 2025-05-14 17:04 | XMS_ITS | Encounter Summary ---
Author Organization [facility] Address [address] [place] [phone] Phone Care Team Providers Care Home Theater Experience Expert Name Role Phone Roney Carmona MD Primary Care Provider Todd ohara Encounter Details Date Type Department Care Team (Late st Contact Info) Description 04/07/2017 Conversion Encounter [facility] - [address] [id number] Social History Tobacco Use Types Packs/Day Years [...] on filedocumented in this encounter Care Teams Home Theater Experience Expert Relationship Specialty Start Date End Date Roney Carmona MD PCP - General 04/01/17 02/10/23 documented as of this encounter
--- OUTSIDE RECORDS SUMMARY | 2025-05-14 17:04 | XMS_ITS | Clinical Summary ---
Author Organization [facility] Address [address] [place] [phone] Phone Care Team Providers Care J2Ee Engineer Name Role Phone Unavailable Primary Care Provider [...] of 2 - 13+ 2-dose series) 11/11/2003 HPV Vaccines (1 - 3-dose SCDM series) 2017 Influenza Vaccines (#1) 2025 COVID-19 Vaccine ( season) 2025 HIB Vaccines Completed 04/21/1992, 04/1991, 03/28/1991, Additional history exists MMR Vaccines Completed 04/15/1995, 04/21/1992 IPV Vaccines Completed 12/29/1995, 05/22, 03/28/1991, Additional history exists Hepatitis B Vaccines Completed 07/10/1997, 04/04/1996, 12/29/1995 Hepatitis A Vaccines Aged Out No long [...]
== END 2025-05-14 14:20 | disposition home or self-care (01) ==
LOC: HO.HMCH 13:52
PROVIDERS: PCP Physician Assistant; Visit Provider Physician Assistant
DX: E78.2 Mixed hyperlipidemia (principal); F33.1 Major depressive disorder, recurrent, moderate; E66.811 Obesity, class 1; Z68.33 Body mass index [BMI] 33.0-33.9, adult; R73.01 Impaired fasting glucose

== ENCOUNTER → 2025-05-14 13:51 | Outpatient (BNVA) | payer OTHER, SELFPAY | PROVIDERS: PCP Physician Assistant; Visit Provider Physician Assistant | DX: F41.1 Generalized anxiety disorder (principal); F33.1 Major depressive disorder, recurrent, moderate; E78.00 Pure hypercholesterolemia, unspecified; E78.2 Mixed hyperlipidemia; R73.01 Impaired fasting glucose; E66.811 Obesity, class 1; Z68.33 Body mass index [BMI] 33.0-33.9, adult | CPT/HCPCS: 96127; 99212 ==